=== PATIENT | male | born 1995 | race Caucasian/White ===

== ENCOUNTER 2021-10-22 08:57 | Emergency (ER) | payer OTHER ==
[~2021-10-22] VITALS: Ht 175.3 cm; Wt 72.6 kg
[2021-10-22 08:58] VITALS: BP_SYST 119
[2021-10-22] MEDS ORDERED: IBUP-1971 PO (09:47)
== END 2021-10-22 10:06 | disposition home or self-care (01) ==
LOC: SED 08:57
DX: S10.93XA Contusion of unspecified part of neck, initial encounter (principal); Z79.899 Other long term (current) drug therapy; W21.07XA Struck by softball, initial encounter; Y93.89 Activity, other specified; Y92.89 Other specified places as the place of occurrence of the external cause; Y99.8 Other external cause status
CPT/HCPCS: 72040-TC; 99283

== ENCOUNTER 2022-12-05 14:38 | Emergency (ER) | payer OTHER ==
[~2022-12-05] VITALS: Ht 172.7 cm; Wt 72.6 kg
[~2022-12-05 14:38] MED LIST: IBUP-1971 PO
[2022-12-05 14:40] VITALS: BP_SYST 119; PULSE 74; RESP 18; TEMP 97.2; O2SAT 97
[2022-12-05] MEDS ORDERED: IBUP-1971 PO (15:44)
[2022-12-05 16:02] VITALS: BP_SYST 117; PULSE 69; RESP 18; TEMP 97.2; O2SAT 99
== END 2022-12-05 16:02 | disposition home or self-care (01) ==
LOC: SED 14:38
DX: S93.401A Sprain of unspecified ligament of right ankle, initial encounter (principal); Z79.899 Other long term (current) drug therapy; W21.07XA Struck by softball, initial encounter; Y93.64 Activity, baseball; Y92.89 Other specified places as the place of occurrence of the external cause; Y99.8 Other external cause status
CPT/HCPCS: 99283